=== PATIENT | female | born 1965 | race Caucasian/White ===

== ENCOUNTER → 2016-07-15 | Outpatient (CLI) | payer OTHER ==
--- OUTSIDE RECORDS SUMMARY | 2016-07-15 09:29 | XMS REPORT | Continuity of Care Document ---
Author Author [facility] Organization [facility] Address Unknown Phone Unavailable Care Team Providers Care Gastroenterology Manager Name Role Phone PCP Unavailable Source Comments Some departments are not documenting in the electronic medical record. If you do not see the information that you expected, contact Release of Information in the Health Information Management department at [phone] for further assistance in locating additional records.[facility] Active Allergies and Adverse Reactions Allergen Noted Date Severity Reactions Comments Keflex 06/30/2016 Medium HIVES Morphine 06/30/2016 Medium HIVES Current Medications Prescription Sig. Disp. Refills Start End Date Status Date liraglutide(+) (VICTOZA Inject 0.6 mg under the Active 2-ARABELLA) 0.6 mg/0.1 mL (18 skin daily. mg/3 mL) pnij mirtazapine (REMERON) 30 Take 30 mg by mouth at Active mg tablet bedtime daily. lisinopril (PRINIVIL; Take 20 mg by mouth Active ZESTRIL) 20 mg tablet daily. atorvastatin (LIPITOR) 40 Take 40 mg by mouth Active mg tablet daily. promethazine (PHENERGAN) Take 25 mg by mouth every Active 25 mg tablet 6 hours as needed for Nausea or Vomiting. nortriptyline (PAMELOR) Take 50 mg by mouth at Active 50 mg capsule bedtime daily. SUMAtriptan (IMITREX) 6 Inject 6 mg under the Active mg/0.5 mL injection skin once. ASPIRIN/ACETAMINOPHEN/CAF Take 2 Tabs by mouth. Active FEINE (EXCEDRIN MIGRAINE PO) Active Problems Problem Noted Date Crohn's disease of colon with fistula (HCC) 06/30/2016 DM (diabetes mellitus screen) 06/30/2016 Hyperlipidemia 06/30/2016 LFTs abnormal 06/30/2016 Most Recent Encounters Date Type Specialty Providers Description 07/01/2016 Telephone Gastroenterology Ghislaine Luna MD Insurance Concerns - none 06/30/2016 Office Visit Gastroenterology Ghislaine Luna MD Crohn's disease with fistula, unspecified gastrointestinal tract location (HCC) (Primary Dx); History of colon resection; Diabetes mellitus of other type with complication (HCC); HLP (hyperkeratosis lenticularis perstans); Abdominal pain, unspecified location; Fistula; Crohn's disease of colon with fistula (HCC); DM (diabetes mellitus screen); LFTs abnormal Social History Tobacco Use Types Packs/Day Years Used Date Current Every Day Smoker Cigarettes Smokeless Tobacco: Never Used Alcohol Use Drinks/Week oz/Week Comments No 0 Standard 0.0 drinks or equivalent Last Filed Vital Signs Vital Sign Reading Time Taken Blood Pressure 141/84 06/30/2016 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 Pulse 95 06/30/2016 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 Temperature 36.8 C (98.3 F) 06/30/2016 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 Respiratory Rate 18 06/30/2016 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 Height 1.626 m (5' 4") 06/30/2016 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 Weight 65.409 kg (144 lb 3.2 oz) 06/30/2016 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 Body Mass Index 24.74 06/30/2016 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 Oxygen Saturation - - Plan of Care Date Type Specialty Providers Description 08/04/2016 Appointment Gastroenterology Ghislaine Luna MD [address] [facility] [address] [place] [address] [phone] (Fax) Health Maintenance Due Date Last Done Comments Hepatitis C Screening 1965 Physical (Comprehensive) 12/17/1970 Exam Pertussis Vaccine 12/17/1974 Tetanus Vaccine 12/17/1980 Dilated Eye Exam 12/17/1981 Foot Exam 12/17/1981 Hba1c 12/17/1981 Microalbumin 12/17/1981 Pneumonia Vaccine (Dm) 12/17/1981 Cervical Cancer Screening 12/17/1984 Breast Cancer Screening 2003 Colorectal Cancer 12/17/2013 Screening Influenza Vaccine 02/19/2016 Results from Last 3 Months Not on file
--- NOTE | 2016-07-15 17:46 | Diagnostic Imaging Report ---
INDICATION: Screening for osteoporosis. Crohn's disease. EXAMINATION: DEXA scan. COMPARISON: There are no prior studies available for comparison. FINDINGS: The bone mineral density of the hips and spine was measured. The T-score for the spine is 1.8. The T-score for the left hip is -0.7 and for the right hip -0.6. All of these values are within normal limits. IMPRESSION: The bone mineral density of the hips and spine is within normal limits. Dictated by: Dictated on workstation # [id number]
== END ==
LOC: RAD 09:27
PROVIDERS: ATTEND Family Medicine
DX: K50.918 Crohn's disease, unspecified, with other complication (principal)
CPT/HCPCS: 77080

== ENCOUNTER → 2016-07-20 | Outpatient (CLI) | payer OTHER ==
[~2016-07-20] MED LIST: GADOBUTROL 7.5 MMOL/7.5 ML (GADAVIST) VIAL IV ONE
--- OUTSIDE RECORDS SUMMARY | 2016-07-20 08:38 | XMS REPORT | Continuity of Care Document ---
Author Author [facility] Organization [facility] Address Unknown Phone Unavailable Care Team Providers Care Hand Gluer And Slicer Name Role Phone PCP Unavailable Source Comments Some departments are not documenting in the electronic medical record. If you do not see the information that you expected, contact Release of Information in the Health Information Management department at [phone] for further assistance in locating additional records.[facility] Active Allergies and Adverse Reactions Allergen Noted [...] Taken Blood Pressure 141/84 06/30/2016 3:10 PM VISUAL BASIC .NET DEVELOPER Pulse 95 06/30/2016 3:10 PM VISUAL BASIC .NET DEVELOPER Temperature 36.8 C (98.3 F) 06/30/2016 3:10 PM VISUAL BASIC .NET DEVELOPER Respiratory Rate 18 06/30/2016 3:10 PM VISUAL BASIC .NET DEVELOPER Height 1.626 m (5' 4") 06/30/2016 3:10 PM VISUAL BASIC .NET DEVELOPER Weight 65.409 kg (144 lb 3.2 oz) 06/30/2016 3:10 PM VISUAL BASIC .NET DEVELOPER Body Mass Index 24.74 06/30/2016 3:10 PM VISUAL BASIC .NET DEVELOPER Oxygen Saturation - - Plan of Care Date Type Specialty Providers Description 08/04/2016 Appointment Gastroenterology Ghislaine Luna MD [address] [facility] [address] [place] [address] [phone] (Fax) Health Maintenance Due Date Last Done [...]
[2016-07-20 09:22] LABS: ALANINE AMINOTRANSFERASE 20 U/L (0-55); ANION GAP 10 MMOL/L (5-14); ASPARTATE AMINO TRANSFERASE 20 U/L (5-34); BILIRUBIN,TOTAL 0.4 MG/DL (0.1-1.0); BLOOD UREA NITROGEN 11 MG/DL (7-18); BUN/CREATININE RATIO 17; CALCIUM 9.9 MG/DL (8.5-10.1); CARBON DIOXIDE 21 MMOL/L (21-32); CHLORIDE 111 MMOL/L (98-107); CREATININE SERUM 0.64 MG/DL (0.60-1.30); GFR ESTIMATED > 60; GLUCOSE 108 MG/DL (70-105); SODIUM 142 MMOL/L (135-145); TOTAL PROTEIN 7.5 G/DL (6.4-8.2)
[2016-07-20 09:24] LABS: POTASSIUM 5.3 MMOL/L (3.6-5.0)
[2016-07-20] MEDS: GLUCAGON EMERGENCY 1 MG/KIT IM PRN ×2 (10:15→10:38)
--- NOTE | 2016-07-20 12:16 | Diagnostic Imaging Report ---
TECHNIQUE: Multiplanar, multisequence MRI of the abdomen and pelvis performed without and with intravenous contrast with MRI enterography protocol. This involved intravenous Gadavist injection of 6 mL. In addition, 0.3 mg of glucagon was administered intravenously during the exam, and oral VoLumen was administered prior to the study. FINDINGS: There is evidence of prior colectomy seen with an ileostomy noted in the lower right abdomen. There is normal caliber of the small bowel loops. No abnormal thickening is seen. There is no stricture or obstruction. There is no abnormal hyperenhancement noted within the small bowel loops. There is no significant free fluid or fluid collection or abscess identified in the abdomen and pelvis. The kidneys demonstrate multiple nonenhancing simple cysts. There is symmetric contrast enhancement seen. There is no hydronephrosis. The liver, the spleen, the pancreas, and the adrenal glands appear unremarkable. The abdominal aorta is normal in caliber. No para-aortic significantly enlarged lymph nodes seen. Cine images in the abdomen or pelvis are performed and evaluated demonstrating normal-appearing peristalsis seen in the stomach, the jejunum, and ileum. IMPRESSION: Post-colectomy and right lower abdominal ileostomy changes seen. No MRI evidence of active enteritis, obstruction, or stricture seen. Dictated by: Dictated on workstation # [id number]
== END ==
LOC: RAD 08:35
PROVIDERS: ATTEND Family Medicine
DX: K50.918 Crohn's disease, unspecified, with other complication (principal); Z93.2 Ileostomy status; Z90.49 Acquired absence of other specified parts of digestive tract
CPT/HCPCS: 36415; 72197; 74183; 80053

== ENCOUNTER → 2016-08-05 | Outpatient (CLI) | payer OTHER ==
--- OUTSIDE RECORDS SUMMARY | 2016-08-05 15:35 | XMS REPORT | Continuity of Care Document ---
Author Author [facility] Organization [facility] Address Unknown Phone Unavailable Care Team Providers Care Acid Washer Operator Name Role Phone PCP Unavailable Source Comments Some departments are not documenting in the electronic medical record. If you do not see the information that you expected, contact Release of Information in the Health Information Management department at [phone] for further assistance in locating additional records.[facility] Active Allergies and Adverse Reactions Allergen [...] by mouth. Active FEINE (EXCEDRIN MIGRAINE PO) ciprofloxacin (CIPRO) 500 Take 1 Tab by mouth daily 30 Tab 0 08/05/19 09/05/19 Active mg tablet for 30 days. 17 17 metroNIDAZOLE (FLAGYL) Take 1 Tab by mouth three 90 Tab 0 08/05/19 09/05/19 Active 500 mg tablet times daily for 30 days. 17 17 Take with food. Do not drink alcohol while on metronidazole. Active Problems Problem Noted Date Crohn's disease of colon with fistula (HCC) 06/30/2016 DM (diabetes mellitus screen) 06/30/2016 Hyperlipidemia 06/30/2016 LFTs abnormal 06/30/2016 Most Recent Encounters Date Type Specialty Providers Description 08/04/2016 Office Visit Ghislaine Briones MD Crohn's disease with complication, unspecified gastrointestinal tract location (Primary Dx); Unintentional weight change; Nausea; Abdominal pain, unspecified location; Diarrhea, unspecified type; Abdominal distension; Anal bleeding; Rectal pain; Fatigue, unspecified type 08/04/2016 Orders Only Ghislaine Briones MD Crohn's disease with fistula, unspecified gastrointestinal tract location; History of colon resection; Diabetes mellitus of other type with complication (HCC); HLP (hyperkeratosis lenticularis perstans); Abdominal pain, unspecified location; Fistula 07/20/2016 Documentation Ghislaine Briones MD 07/20/2016 Documentation Ghislaine Briones MD 07/01/2016 Telephone Ghislaine Briones MD Insurance Concerns - none 06/30/2016 Office Visit Ghislaine Briones MD Crohn's disease with fistula, unspecified gastrointestinal [...] Vital Sign Reading Time Taken Blood Pressure 154/77 08/04/2016 3:47 PM RAIL CAR REPAIR CARMAN Pulse 96 08/04/2016 3:47 PM RAIL CAR REPAIR CARMAN Temperature 36.7 C (98.1 F) 08/04/2016 3:47 PM RAIL CAR REPAIR CARMAN Respiratory Rate 16 08/04/2016 3:47 PM RAIL CAR REPAIR CARMAN Height 1.626 m (5' 4") 08/04/2016 3:47 PM RAIL CAR REPAIR CARMAN Weight 64.864 kg (143 lb) 08/04/2016 3:47 PM RAIL CAR REPAIR CARMAN Body Mass Index 24.53 08/04/2016 3:47 PM RAIL CAR REPAIR CARMAN Oxygen Saturation - - Plan of Care Health Maintenance Due Date Last Done Comments Hepatitis C Screening 1965 Physical (Comprehensive) 12/17/1970 Exam Pertussis Vaccine 12/17/1974 Tetanus Vaccine 12/17/1980 Dilated Eye Exam 12/17/1981 Foot Exam 12/17/1981 Hba1c 12/17/1981 Microalbumin 12/17/1981 Pneumonia Vaccine (Dm) 12/17/1981 Cervical Cancer Screening 12/17/1984 Breast Cancer Screening 2003 Colorectal Cancer 12/17/2013 Screening Influenza Vaccine 02/19/2016 Results from Last 3 Months COMPREHENSIVE METABOLIC PANEL (07/23/2016) Component Value Range Sodium 145 Potassium 4.5 Chloride 102 CO2 24 Blood Urea Nitrogen 9 Creatinine 0.53 Glucose 115 Calcium 10.1 Total Protein 7.2 Total Bilirubin 0.2 Albumin 4.3 Alk Phosphatase 156 AST (SGOT) 20 ALT (SGPT) 23 Anion Gap 1.5 Specimen Blood
[2016-08-07 13:22] LABS: HEPATITIS B SURFACE AB INDEX <3.10 mIU/mL (>=10.00); HEPATITIS B SURFACE AB INTERP Non-Immune (Immune)
== END ==
LOC: LAB 15:31
PROVIDERS: ATTEND Internal Medicine Gastroenterology
DX: K50.913 Crohn's disease, unspecified, with fistula (principal); E13.8 Other specified diabetes mellitus with unspecified complications; L85.9 Epidermal thickening, unspecified; R10.9 Unspecified abdominal pain; Z90.49 Acquired absence of other specified parts of digestive tract
CPT/HCPCS: 36415; 86706; 86803; 87340

== ENCOUNTER → 2017-01-20 | Outpatient (CLI) | payer MEDICAID, OTHER ==
[~2017-01-20] MED LIST changes: +CATHETER FLUSH 10 ML SYR IV PRN; -GADOBUTROL 7.5 MMOL/7.5 ML (GADAVIST) VIAL IV ONE; +IOHEXOL 350 MG/ML 100 ML (OMNIPAQUE 350) VIAL IV ONE; +NS 100 ML (IVPB) BAG IV ONE
--- NOTE | 2017-01-20 15:36 | Diagnostic Imaging Report ---
PROCEDURE: CT abdomen and pelvis with contrast. TECHNIQUE: Multiple contiguous axial images were obtained through the abdomen and pelvis after administration of intravenous contrast. INDICATION: Abdominal wound dehiscence. 100 mL of Omnipaque-350 is as administered intravenously. FINDINGS: The lung bases appear clear. The liver demonstrates diffuse fatty infiltration. The gallbladder is contracted with no calcified stones. The spleen is not enlarged. The adrenal glands and the pancreas appear unremarkable. The kidneys have symmetric enhancement and contrast excretion. There is no hydronephrosis. There are simple cysts in the right kidney up to 1.8 cm in size. The urinary bladder appears unremarkable. The abdominal aorta is normal in caliber. No para-aortic significantly enlarged lymph node is seen. There is an air bubble seen at the level of the umbilicus which appears to be within a fluid-filled small umbilical hernia sac. This is probably within a herniating small bowel loop. There is a right-sided stoma seen. No significant abnormality or parastomal hernia is noted. There is evidence of prior colectomy. Presacral small amount of fluid is probably a postoperative seroma. No significant free fluid or fluid collection is seen in the abdomen or pelvis otherwise. The osseous structures demonstrate prominent degenerative changes in the lower lumbar spine. IMPRESSION: 1. There is a small umbilical hernia with an air-fluid level seen. This is probably within a herniating small bowel loop. 2. There is a small amount of fluid in the presacral region probably related to postoperative seroma. If there is evidence of infection, then a small abscess could be considered. Correlate clinically and with follow-up exam utilizing oral contrast. Dictated by: Dictated on workstation # [id number]
== END ==
LOC: RAD 14:01
PROVIDERS: ATTEND Family Medicine
DX: T81.30XD Disruption of wound, unspecified, subsequent encounter (principal); Z98.890 Other specified postprocedural states
CPT/HCPCS: 74177

== ENCOUNTER → 2019-10-30 | Outpatient (CLI) | payer MEDICARE ==
--- NOTE | 2019-11-01 10:50 | Diagnostic Imaging Report ---
INDICATION: 53-year-old postmenopausal female. COMPARISON: 07/15/2016. FINDINGS: AP Spine L1-L4: [BMD (g/cm2): 1.292] [T-Score: 0.8] [Z-Score: 1.0] [BMD Previous: 1.415] [BMD % Change: -8.7] LT Hip Neck: [BMD (g/cm2): 0.846] [T-Score: -1.4] [Z-Score: -0.7] LT Hip Total: [BMD (g/cm2):0.899] [T-Score:-0.9] [Z-Score: -0.6] [BMD Previous: 0.922] [BMD % Change: -2.5] RT Hip Neck: [BMD (g/cm2):.0848] [T-Score:-1.4] [Z-Score:-0.7] RT Hip Total: [BMD (g/cm2):0.939] [T-score:-0.5] [Z-Score:-0.3] [BMD Previous:0.931] [BMD % Change:0.9] *Indicates significant change from prior examination based on 95% confidence level. World Health Organization criteria for BMD interpretation classify patients as Normal (T-score at or above -1.0), Osteopenic (T-score between -1.0 and -2.5) or Osteoporotic (T-score at or below -2.5). LIMITATIONS AND MODIFICATION: None. IMPRESSION: 1. Normal bone mineral density. 2. No significant change in bone mineral density since prior examination. 3. See below National Osteoporosis Foundation guidelines on when to potentially initiate pharmacologic therapy. Based on the National Osteoporosis Foundation Guidelines, pharmacologic treatment should be initiated in any of the following, unless clinical conditions suggest otherwise: * Any patient with prior fragility fracture of the hip or vertebrae. A spine fracture indicates 5X risk for subsequent spine fracture and 2X risk for subsequent hip fracture. * Osteoporosis (T-score <-2.5). * Postmenopausal women and men age 50 and older with low bone mass/osteopenia (T-score between -1.0 and -2.5) by DXA and 10-year major osteoporotic fracture greater than 20% or a 10-year probability of hip fracture greater than 3%. These fracture risks are supplied above in the FRAX score, if applicable. * Clinician judgement and/or patient preferences may indicate treatment for people with 10-year fracture probabilities above or below these levels. Dictated by: Dictated on workstation # [id number]
== END ==
LOC: RAD 13:44
PROVIDERS: ATTEND Family Medicine
DX: Z13.820 Encounter for screening for osteoporosis (principal); Z78.0 Asymptomatic menopausal state
CPT/HCPCS: 77080

== ENCOUNTER → 2019-11-27 | Outpatient (CLI) | payer MEDICARE ==
--- NOTE | 2019-11-27 16:42 | Diagnostic Imaging Report ---
EXAMINATION: CT Chest without contrast (lung screening). TECHNIQUE: Multiple contiguous axial images were obtained through the chest without the use of intravenous contrast according to lung cancer screening protocol. All CT scans use one or more of the following dose optimizing techniques: automated exposure control, MA and/or KvP adjustment based on a patient size and exam type, or iterative reconstruction. HISTORY: 30 pack year history of smoking. COMPARISON: None available. FINDINGS: There is no edema or pneumonia. No pleural effusion. No pneumothorax. No suspicious nodules. Mucus is present in the trachea. Heart size is normal. There are mild coronary artery calcifications. No pericardial effusion. Aorta is normal in caliber. There is no axillary or supraclavicular lymphadenopathy. There is no mediastinal lymphadenopathy. Limited views of the upper abdomen are unremarkable. There are no suspicious osseus lesions. IMPRESSION: 1. No suspicious pulmonary nodules. LUNG-RADS CATEGORY: 1 MODIFIER: None. Dictated by: Dictated on workstation # [id number]
== END ==
LOC: RAD 11:12
PROVIDERS: ATTEND Family Medicine
DX: Z12.2 Encounter for screening for malignant neoplasm of respiratory organs (principal); Z87.891 Personal history of nicotine dependence

== ENCOUNTER 2019-12-27 13:31 | Outpatient (RCR) | payer MEDICARE ==
[2019-12-18 13:15] LABS: BASOPHILS % (AUTO) 0 % (0-10); EOSINOPHILS % (AUTO) 0 % (0-10); HEMATOCRIT 42 % (35-52); HEMOGLOBIN 14.5 G/DL (11.5-16.0); LYMPHOCYTES # (AUTO) 2.8 X 10^3 (1.0-4.0); LYMPHOCYTES % (AUTO) 52 % (12-44); MEAN CORPUSCULAR HEMOGLOBIN 31 PG (25-34); MEAN CORPUSCULAR HGB CONC 35 G/DL (32-36); MEAN CORPUSCULAR VOLUME 89 FL (80-99); MEAN PLATELET VOLUME 8.8 FL (7.4-10.4); MONOCYTES # (AUTO) 0.5 X 10^3 (0.0-1.0); MONOCYTES % (AUTO) 10 % (0-12); NEUTROPHILS % (AUTO) 38 % (42-75); PLATELET COUNT 120 10^3/uL (130-400); WHITE BLOOD COUNT 5.3 10^3/uL (4.3-11.0)
[2019-12-18 13:33] LABS: ALANINE AMINOTRANSFERASE 19 U/L (0-55); ALBUMIN 4.1 GM/DL (3.2-4.5); ALKALINE PHOSPHATASE 131 U/L (40-136); BILIRUBIN,TOTAL 0.6 MG/DL (0.1-1.0); BUN/CREATININE RATIO 18; CALCIUM 9.6 MG/DL (8.5-10.1); CARBON DIOXIDE 19 MMOL/L (21-32); CHLORIDE 110 MMOL/L (98-107); CREATININE SERUM 0.78 MG/DL (0.60-1.30); GFR ESTIMATED > 60; GLUCOSE 97 MG/DL (70-105); SODIUM 139 MMOL/L (135-145)
== END 2020-03-17 | disposition home or self-care (01) ==
LOC: ONC 13:31
PROVIDERS: ATTEND Internal Medicine Hematology & Oncology
DX: K50.80 Crohn's disease of both small and large intestine without complications (principal)
CPT/HCPCS: 80053; 81270; 82375; 82668; 83615; 85025; 99214

== ENCOUNTER → 2020-12-23 | Outpatient (CLI) | payer MEDICARE ==
--- NOTE | 2020-12-23 16:44 | Diagnostic Imaging Report ---
EXAMINATION: CT chest without contrast (lung screening). TECHNIQUE: Multiple contiguous axial images were obtained through the chest without the use of intravenous contrast according to lung cancer screening protocol. All CT scans use one or more of the following dose optimizing techniques: automated exposure control, MA and/or KvP adjustment based on patient size and exam type or iterative reconstruction. HISTORY: 40 pack year history of smoking. COMPARISON: 11/27/2019 FINDINGS: There is no edema or pneumonia. No pleural effusion. No pneumothorax. No suspicious nodules. There is no axillary or supraclavicular lymphadenopathy. There is no mediastinal lymphadenopathy. Heart size is normal. There are mild coronary artery calcifications. No pericardial effusion. Aorta is normal in caliber. Limited views of the upper abdomen are unremarkable. There are no suspicious osseus lesions. IMPRESSION: 1. No suspicious pulmonary nodules. LUNG-RADS CATEGORY: 1 MODIFIER: None. Dictated by: Dictated on workstation # [id number]
== END ==
LOC: RAD 11:15
PROVIDERS: ATTEND Family Medicine
DX: Z12.2 Encounter for screening for malignant neoplasm of respiratory organs (principal); F17.210 Nicotine dependence, cigarettes, uncomplicated
CPT/HCPCS: 71271

== ENCOUNTER 2022-03-09 17:39 | Emergency (ER) | payer MEDICARE ==
[~2022-03-09] VITALS: Ht 162.6 cm; Wt 79.7 kg
[2022-03-09 17:58] VITALS: BP 142/78
--- NOTE | 2022-03-09 18:00 | ED Cough/URI ---
General Stated Complaint: CONGESTION Source: patient, other (senior living AUTOMOTIVE PARTS CLERK) Exam Limitations: no limitations History of Present Illness Date Seen by Provider: Mar 09, 2022 Time Seen by Provider: 17:43 Initial Comments 56-year-old female with past medical history most notable for COPD and diabetes coming in as a referral from walk-in clinic due to cough, congestion, mild dyspnea. Reportedly her oxygen saturation was transiently in the high 80s and went up to the 90s. She says she had a fever yesterday, has not had any medicines for fever today. Multiple family members are sick as well. Has had COVID-vaccine in the past. Denies any chest pain, abdominal pain, nausea, vomiting, diarrhea, weakness, numbness, or any other concerns. Has used her inhalers today which has helped. Allergies and Home Medications Allergies Coded Allergies: cephalexin (Verified Allergy, Unknown, 03/09/22) Uncoded Allergies: antidepressant (Adverse Reaction, Unknown, 03/09/22) Patient Home Medication List Home Medication List Reviewed: Yes Review of Systems Review of Systems Constitutional: fever EENTM: No blurred vision Respiratory: cough, short of breath Cardiovascular: No chest pain Gastrointestinal: No abdominal pain Genitourinary: no symptoms reported Musculoskeletal: no symptoms reported Skin: no symptoms reported Psychiatric/Neurological: No Symptoms Reported Hematologic/Lymphatic: No Symptoms Reported Immunological/Allergic: no symptoms reported All Other Systems Reviewed Negative Unless Noted: Yes Past Qptioxy-Dqaqof-Furvvl Hx Patient Social History Tobacco Use?: Yes Tobacco type used: Cigarettes Smokeless Tobacco Frequency: Current Everyday User Past Medical History Surgeries: Yes Hysterectomy Physical Exam Vital Signs - First Documented 03/09/22 17:58 Temp 36.6 Pulse 86 Resp 18 B/P (MAP) 142/78 (99) Pulse Ox 92 O2 Delivery Room Air Capillary Refill : Height: '" Weight: lbs. oz. kg; BMI Method: General Appearance: WD/WN, no apparent distress HEENT: PERRL/EOMI, normal ENT inspection, pharynx normal Neck: non-tender, full range of motion, supple, normal inspection Respiratory: chest non-tender, no respiratory distress, no accessory muscle use, wheezing (mild expiratory wheeze) Cardiovascular: regular rate, rhythm, no edema, no murmur Gastrointestinal: normal bowel sounds, non tender, soft; No distended, No guarding, No rebound Extremities: normal range of motion, non-tender, normal inspection, no pedal edema, no calf tenderness, normal capillary refill Neurologic/Psychiatric: no motor/sensory deficits, alert, normal mood/affect Skin: normal color, warm/dry Lymphatic: no adenopathy Progress/Results/Core Measures Suspected Sepsis SIRS Temperature: Pulse: Respiratory Rate: Blood Pressure / Mean: Results/Orders Lab Results Laboratory Tests Test 03/09/22 18:05 Range/Units My Orders Orders - STEFANO GAINES MD Influenza A And B By Pcr (03/09/22 18:00) Covid 19 Inhouse Test (03/09/22 18:00) Chest Pa/Lat (2 View) (03/09/22 18:00) Vital Signs/I&O 03/09/22 17:58 Temp 36.6 Pulse 86 Resp 18 B/P (MAP) 142/78 (99) Pulse Ox 92 O2 Delivery Room Air Capillary Refill : Progress Note : Progress Note 56-year-old female with above history coming in due to cough and congestion. ABCs were intact and vitals were stable on presentation. She has a history of C OPD and her oxygen ranges between 90 to 95% which is appropriate for her. Lungs with some very mild wheezing initially but was not heard on subsequent breaths. Chest x-ray with likely developing infiltrate in the left midlung. We will start her on doxycycline as well as steroids given her history of COPD. COVID and flu testing negative. Diagnostic Imaging Diagonstic Imaging: Xray (chest) Comments [facility], [place] NAME: MICHAEL SALAZAR [facility] REC#: [id number] PT STATUS: REG ER : 1965 PHYSICIAN: STEFANO GAINES MD ADMIT DATE: 03/09/22/ER FS Draft Date of Exam:03/09/22 CHEST PA/LAT (2 VIEW) INDICATION: Shortness of air, cough, and runny nose. EXAMINATION: Two-view chest, 03/09/2022. FINDINGS: Two views of the chest. There are coarsened markings throughout the lungs with a more focal vague density in the left mid lung, possibly infiltrate. There are no effusions. There is no pneumothorax. Heart and pulmonary vasculature are normal. IMPRESSION: 1. Question developing infiltrate in the left mid lung, possibly an atypical infiltrate. Correlate with symptoms. Follow-up recommended to assure resolution. Dictated on workstation # [id number] Dict: 03/09/221814 Trans: 03/09/221818 [id number] Interpreted by: SELENE ULLOA MD Electronically signed by: Departure Impression Primary Impression: URI (upper respiratory infection) Qualified Codes: J06.9 - Acute upper respiratory infection, unspecified Additional Impression: Lung infiltrate Disposition: HOME, SELF-CARE Condition: Stable Departure-Patient Inst. Referrals: JONI ARCHIBALD MD (PCP/Family) Primary Care Physician Patient Instructions: Upper Respiratory Infection ED Add. Discharge Instructions: It does appear like you could be developing infection in your lungs which is very mild on the chest x-ray. You will be on antibiotics for the next week. Follow-up with your regular doctor if things are not improving after that time. Scripts Methylprednisolone (Methylprednisolone Dose Pack) 4 Mg Tab.ds.pk 4 MG PO UD for 6 Days, #21 PKG PER DOSE PACK INSTRUCTIONS Prov: STEFANO GAINES MD 03/09/22 Doxycycline Hyclate (Doxycycline Hyclate) 100 Mg Tablet 100 MG PO BID for 7 Days, #14 TAB 0 Refills Prov: STEFANO GAINES MD 03/09/22 Work/School Note: Work Release Form Date Seen in the Emergency Department: Mar 09, 2022 Return to Work: Mar 11, 2022 Restrictions: Return-No Fever (24hrs) STEFANO GAINES MD Mar 09, 2022 18:00
--- NOTE | 2022-03-09 18:20 | Diagnostic Imaging Report ---
INDICATION: Shortness of air, cough, and runny nose. EXAMINATION: Two-view chest, 03/09/2022. FINDINGS: Two views of the chest. There are coarsened markings throughout the lungs with a more focal vague density in the left mid lung, possibly infiltrate. There are no effusions. There is no pneumothorax. Heart and pulmonary vasculature are normal. IMPRESSION: 1. Question developing infiltrate in the left mid lung, possibly an atypical infiltrate. Correlate with symptoms. Follow-up recommended to assure resolution. Dictated by: Dictated on workstation # [id number]
[2022-03-09] MEDS ORDERED: METH4TAB10 PO (18:35)
[2022-03-09] MEDS ORDERED: DOXY100T2 PO (18:35)
[2022-03-09] MEDS ORDERED: DOXYCYCLINE 100 MG (VIBRAMYCIN) TABLET PO STA (18:37)
[2022-03-09] MEDS ORDERED: predniSONE 20 MG TAB PO ONE (18:45)
== END 2022-03-09 18:45 | disposition home or self-care (01) ==
LOC: EDUNIT# 17:39 → ER FS 17:40
DX: J06.9 Acute upper respiratory infection, unspecified (principal); R91.8 Other nonspecific abnormal finding of lung field; F17.210 Nicotine dependence, cigarettes, uncomplicated; Z20.822 Contact with and (suspected) exposure to COVID-19
CPT/HCPCS: 71046; 87636

== ENCOUNTER → 2023-02-03 | Outpatient (CLI) | payer MEDICARE ==
[~2023-02-03] MED LIST changes: +DOXY100T2 PO; +HOLD METFORMIN - RECEIVED CONTRAST 20 ML VIAL IV SCH; +METH4TAB10 PO
--- NOTE | 2023-02-03 10:02 | Diagnostic Imaging Report ---
EXAMINATION: CT abdomen with and without intravenous contrast. TECHNIQUE: Precontrast acquisitions were acquired through the abdomen . Multiple contiguous axial images were obtained through the abdomen after the administration of intravenous contrast. All CT scans use one or more of the following dose optimizing techniques: automated exposure control, MA and/or KvP adjustment based on patient size and exam type or iterative reconstruction. HISTORY: Pancreatic lesion evaluation, COMPARISON: 01/20/2017 FINDINGS: Lung bases: Bibasilar dependent atelectasis. Solid organs: The liver is normal without focal lesion. The gallbladder is normal. There is no biliary ductal dilation. No pancreatic ductal dilatation or atrophy. There is a subtle, mildly enhancing lesion in the pancreatic tail measuring 1.5 x 1.4 cm. Spleen is normal. Adrenal glands are normal. There is a small hypoattenuating lesion in the posterior right kidney measuring 1.0 cm. The lesion may demonstrate mild enhancement although its small size makes this difficult to accurately evaluate. On the prior CT of 01/20/2017, this lesion measured 1.8 cm in size. Bowel: No bowel obstruction. Peritoneum: There is no intraperitoneal free fluid or free air. No suspicious lymphadenopathy. Vasculature: Calcification of the aorta without aneurysm. Musculoskeletal: Degenerative changes of the spine without suspicious osseous lesion or compression fracture. IMPRESSION: 1. A 1.5 cm enhancing lesion within the pancreatic tail. This finding is concerning for a pancreatic neoplasm. Consider further evaluation with EUS given its close proximity to the gastric wall with the possibility for biopsy. 2. Decreasing size of a posterior right renal lesion which may demonstrate some enhancement. Evaluation is limited given its small size on cross-sectional imaging. Interval decreased size from 2017 favors a benign process. Consider further evaluation with MRI renal mass protocol. Dictated by: Dictated on workstation # [id number]
== END ==
LOC: RAD 06:44
PROVIDERS: ATTEND Transplant Surgery
DX: K75.81 Nonalcoholic steatohepatitis (NASH) (principal); D3A.8 Other benign neuroendocrine tumors; K86.9 Disease of pancreas, unspecified
CPT/HCPCS: 74170